=== PATIENT | female | born 1960 | race Caucasian/White ===

== ENCOUNTER 2018-09-05 16:32 | Emergency (ER) | payer OTHER ==
[~2018-09-05] VITALS: Ht 157.5 cm; Wt 49.9 kg
--- NOTE | 2018-09-05 16:43 | NUR ---
PT A/OX4, PRESENTS TO THE ER C/O A LAC ON HER [place]. PT REPORTS SHE TRIPPED AND HAD A GLF 30 MIN PROGRAM EVALUATOR. PAIN IN CHIN IS NON-PROVOKED, SHARP IN QUALITY, DOES NOT RADIATE, 6/10, CONSTANT. NO BLEEDING NOTED AT THIS TIME. PT DENIES LOC RE TO GLF. VSS. PT DENIES C/P, SOB, N/V/D, DIZZINESS, HEADACHE. ER MD AT BEDSIDE FOR MSE.
[2018-09-05] MEDS ORDERED: TDAP DIPH,PERTUSS,TET VAC/PF 0.5 ML DISP.SYRIN IM ONE ×2 (16:52→17:00)
[2018-09-05] MEDS ORDERED: NEOMY/BACITRA/POLYMYXIN B OINT UD PACKET TP ONE ×2 (17:02→17:15)
--- NOTE | 2018-09-05 17:11 | NUR ---
PT TAKEN TO RADIOLOGY FOR CT SCAN.
--- NOTE | 2018-09-05 17:24 | NUR ---
PT BACK IN ER FROM RADIOLOGY.
[2018-09-05 18:14] VITALS: BP 122/79
--- NOTE | 2018-09-05 18:14 | NUR ---
Patient discharged to home in stable conditon. Written and verbal after care instructions given. Patient verbalizes understanding of instructions. ALL BELONGINGS W/ PT. PT SELF-AMBULATED W/O DIFFICULTY.
== END 2018-09-05 18:15 | disposition home or self-care (01) ==
LOC: ER 16:34
DX: S01.81XA Laceration without foreign body of other part of head, initial encounter (principal); Z88.5 Allergy status to narcotic agent; W01.198A Fall on same level from slipping, tripping and stumbling with subsequent striking against other object, initial encounter; Y93.89 Activity, other specified; Y92.89 Other specified places as the place of occurrence of the external cause; Y99.8 Other external cause status
CPT/HCPCS: 12011; 70450; 70486; 90471; 90715; 99284; J3490; A4217; A4663